=== PATIENT | female | born 2000 | race Two or more races ===

== ENCOUNTER 2021-10-04 21:45 | Inpatient (IN) | payer OTHER ==
[~2021-10-04] VITALS: Ht 152.4 cm; Wt 80.7 kg
[2021-10-04] MEDS ORDERED: PRENTAB9 PO (21:57)
[2021-10-04] MEDS ORDERED: HOME MED LIST COMPLETE! XX SCH (22:00)
[2021-10-04 22:10] VITALS: BP 121/61
[2021-10-04] MEDS ORDERED: PENICILLIN G POTASSIUM IV 5 MU in D5W MINI-BAG PLUS 100 ML IV STA (23:18)
[2021-10-04] MEDS ORDERED: LACTATED RINGER'S 1000 ML IV ONE (23:20)
[2021-10-04] MEDS ORDERED: OXYTOCIN DRIP 30 UNITS in IV 1 EA IV PRN ×4 (23:20)
[2021-10-04] MEDS ORDERED: TRANEXAMIC ACID INJection 1,000 MG in NS 100 ML IV PRN (23:20)
[2021-10-04] MEDS ORDERED: METHYLERGONOVINE MALEATE 0.2 MG/ML VIAL (J2210) IM PRN (23:20)
[2021-10-04] MEDS ORDERED: LR 1,000 ML IV SCH (23:20)
[2021-10-04] MEDS ORDERED: OXYTOCIN INJ 10 UNITS/ML VIAL (J2590) IV PRN (23:20)
[2021-10-04] MEDS ORDERED: BETAMETHASONE SOLUSPAN 6MG/ML 5ML VIAL (J0702 PER 3MG) IM SCH (23:30)
[2021-10-04] MEDS ORDERED: MAGNESIUM *L&D* 4GM/100ML BAG (40MG/ML) IV ONE (23:30)
[2021-10-04] MEDS ORDERED: MAG Sulf (OBGYN) 20GM/500ML 20,000 MG in IV 1 EA IV SCH (23:30)
[2021-10-05] VITALS (19 sets, daily range): BP systolic 90–129; BP diastolic 51–70
[2021-10-05 00:38] LABS: HEMATOCRIT 36.1 % (36.0-47.0); HEMOGLOBIN 12.3 g/dl (12.0-15.5); MEAN CORPUSCULAR HEMOGLOBIN 30.2 pg (27.0-33.0); MEAN CORPUSCULAR HGB CONC 34.1 g/dl (32.0-36.5); MEAN CORPUSCULAR VOLUME 88.7 fl (80.0-96.0); PLATELET COUNT, AUTOMATED 283 10^3/uL (150-450); RED BLOOD COUNT 4.07 10^6/uL (4.00-5.40)
[2021-10-05] MEDS ORDERED: TERBUTALINE SULFATE 1 MG/ML VIAL (J3105) SC STA ×2 (04:14→05:15)
[2021-10-05] MEDS ORDERED: PENICILLIN G POTASSIUM IV 2.5 MU in IV 1 EA IV SCH (05:00)
[2021-10-05] MEDS ORDERED: LIDOCAINE 1% MDV 20ML VIAL INFIL PRN (06:55)
[2021-10-05] MEDS ORDERED: OXYTOCIN DRIP 30 UNITS in IV 1 EA IV PRN ×4 (06:55)
[2021-10-05] MEDS ORDERED: OXYTOCIN INJ 10 UNITS/ML VIAL (J2590) IV PRN (06:55)
[2021-10-05] MEDS ORDERED: ceFAZolin 2 GM/D5W 50 ML IV BAG (J0690 PER 500MG) As Ordered ONE (06:59)
[2021-10-05] MEDS ORDERED: BICITRA 30ML SOLN UDC As Ordered ONE (07:00)
[2021-10-05] MEDS ORDERED: OXYTOCIN INJ 10 UNITS/ML VIAL (J2590) As Ordered ONE (07:16)
[2021-10-05] MEDS ORDERED: ONDANSETRON 4MG 2ML VIAL As Ordered ONE ×2 (07:20→08:10)
[2021-10-05] MEDS ORDERED: BUPIVACAINE HCL 0.25% 10ML VIAL As Ordered ONE (07:20)
[2021-10-05] MEDS ORDERED: METOCLOPRAMIDE INJ 10MG/2ML VIAL (J2765 PER 1) As Ordered ONE (07:21)
[2021-10-05 07:41] LABS: CORD GAS ABE A -3.6; CORD GAS HCO3 A 22.5 MEQ/L; CORD GAS O2 SAT A 73.1 %; CORD GAS PCO2 A 44.5 mmHg; CORD GAS PH A 7.322 UNITS; CORD GAS PO2 A 28.9 mmHg; CORD GAS SBC A 20.9 MEQ/L; CORD GAS TCO2 A 23.9 MEQ/L
[2021-10-05 07:43] LABS: CORD GAS ABE V -3.9; CORD GAS HCO3 V 21.5 MEQ/L; CORD GAS O2 SAT V 61.3 %; CORD GAS PCO2 V 40.4 mmHg; CORD GAS PH V 7.343 UNITS; CORD GAS PO2 V 23.5 mmHg; CORD GAS SBC V 20.3 MEQ/L; CORD GAS TCO2 V 22.7 MEQ/L
[2021-10-05] MEDS ORDERED: ROCURONIUM BROMIDE 50 MG/5 ML VIAL As Ordered ONE (07:43)
[2021-10-05] MEDS ORDERED: LIDOCAINE 2% 100MG/5ML SDV (FOR ANES.) As Ordered ONE (07:43)
[2021-10-05] MEDS ORDERED: propofoL 200 MG/20 ML VIAL As Ordered ONE (07:43)
[2021-10-05] MEDS ORDERED: AZITHROMYCIN INJ 500 MG, VIAL MATE ADAPTER 1 EACH in NS 250 ML IV ONE (08:00)
[2021-10-05] MEDS ORDERED: ACETAMINOPHEN 650 MG SUPP PR ONE (08:00)
[2021-10-05] MEDS ORDERED: KETOROLAC 60MG 2ML VIAL As Ordered ONE (08:00)
[2021-10-05] MEDS ORDERED: BICITRA 30ML SOLN UDC PO ONE (08:00)
[2021-10-05] MEDS ORDERED: ceFAZolin SOD 2 GM in IV 1 EA IV ONE (08:00)
[2021-10-05] MEDS ORDERED: dexameTHASONE 4 MG/ML 1ML VIAL (J1100 PER 1MG) As Ordered ONE (08:04)
[2021-10-05] MEDS ORDERED: OXYTOCIN 30 UNITS IN 0.9% NaCl 500ML IV BAG (J2590) As Ordered ONE (08:16)
[2021-10-05] MEDS ORDERED: LR 1,000 ML IV SCH ×2 (08:20→08:55)
[2021-10-05] MEDS ORDERED: fentaNYL 100 MCG/2 ML INJECTION IV PRN ×2 (08:20→08:55)
[2021-10-05] MEDS ORDERED: ONDANSETRON 4MG 2ML VIAL IV PRN ×2 (08:20→08:55)
[2021-10-05] MEDS ORDERED: NALOXONE INJ 0.4MG/1ML VIAL (J2310 PER 1MG) IV PRN ×4 (08:20→08:55)
[2021-10-05] MEDS ORDERED: **NOTE PATIENT COMMENT** MISC XX SCH ×2 (08:20→08:50)
[2021-10-05] MEDS ORDERED: METOCLOPRAMIDE INJ 10MG/2ML VIAL (J2765 PER 1) IV PRN ×2 (08:20→08:50)
[2021-10-05] MEDS ORDERED: PERCOCET 5MG/325MG TAB PO PRN ×2 (08:20→08:25)
[2021-10-05] MEDS ORDERED: diphenhydrAMINE 50MG/ML VIAL (J1200) IV PRN ×2 (08:20→08:50)
[2021-10-05] MEDS ORDERED: OXYTOCIN DRIP 30 UNITS in IV 1 EA IV SCH ×4 (08:25)
[2021-10-05] MEDS ORDERED: SIMETHICONE 80MG CHEW TAB PO PRN (08:25)
[2021-10-05] MEDS ORDERED: RHOGAM 300 MCG (1500 IU) INJ (J2790) IM SCH (08:25)
[2021-10-05] MEDS ORDERED: ACETAMINOPHEN TAB 650MG DOSE (2X325MG) PO PRN (08:25)
[2021-10-05] MEDS ORDERED: DOCUSATE SODIUM 100MG CAPSULE PO PRN (08:25)
[2021-10-05] MEDS ORDERED: ACETAMINOPHEN 500 MG TAB PO PRN (08:25)
[2021-10-05] MEDS ORDERED: MOM 30ML SUSPENSION UDC PO PRN (08:25)
[2021-10-05] MEDS ORDERED: ANUSOL HC CREAM 30GM TOP PRN (08:25)
[2021-10-05] MEDS: PRENATAL VITAMINS CHEWABLE TABLET PO SCH (09:00)
[2021-10-05] MEDS ORDERED: PERCOCET 5MG/325MG TAB As Ordered ONE (09:02)
[2021-10-05] MEDS: LR 1,000 ML IV SCH ×2 (12:58→16:25)
[2021-10-05] MEDS: KETOROLAC 30 MG/ML 1ML VIAL IV SCH ×2 (14:30→19:51)
[2021-10-05] MEDS: SLF 3 ML SYR IV SCH (14:32)
[2021-10-06] MEDS: LR 1,000 ML IV SCH ×2 (00:25→08:25)
[2021-10-06 02:18] VITALS: BP 101/60
[2021-10-06] MEDS: KETOROLAC 30 MG/ML 1ML VIAL IV SCH (02:25)
[2021-10-06 06:34] VITALS: BP 101/56
[2021-10-06 08:09] LABS: HEMATOCRIT 31.4 % (36.0-47.0); HEMOGLOBIN 10.6 g/dl (12.0-15.5); MEAN CORPUSCULAR HEMOGLOBIN 29.7 pg (27.0-33.0); MEAN CORPUSCULAR HGB CONC 33.8 g/dl (32.0-36.5); PLATELET COUNT, AUTOMATED 258 10^3/uL (150-450); RED BLOOD COUNT 3.57 10^6/uL (4.00-5.40); WHITE BLOOD COUNT 13.7 10^3/uL (4.0-10.0)
[2021-10-06] MEDS: PRENATAL VITAMINS CHEWABLE TABLET PO SCH (09:38)
[2021-10-06] MEDS: PERCOCET 5MG/325MG TAB PO PRN ×3 (09:38→23:01)
[2021-10-06] MEDS ORDERED: IBUPROFEN 600MG TAB PO PRN (10:00)
[2021-10-06 10:05] VITALS: BP 106/60
[2021-10-06] MEDS: SLF 3 ML SYR IV SCH (13:30)
[2021-10-06 14:45] VITALS: BP 106/60
[2021-10-06 18:00] VITALS: BP 112/64
[2021-10-06 22:00] VITALS: BP 108/73
[2021-10-07 02:00] VITALS: BP 106/63
[2021-10-07 06:00] VITALS: BP 109/68
[2021-10-07] MEDS ORDERED: ACET1TAB55 PO (06:43)
[2021-10-07] MEDS ORDERED: IBUP-1022 PO (06:43)
[2021-10-07] MEDS ORDERED: COLA100C5 PO (06:43)
[2021-10-07] MEDS ORDERED: PERCOCET PO (06:43)
[2021-10-07] MEDS: PRENATAL VITAMINS CHEWABLE TABLET PO SCH (07:32)
[2021-10-07] MEDS ORDERED: MEASLES,MUMPS,RUBELLA VACCINE INJ (MMR-II) (90707) SC.IMMUN ONE (09:00)
== END 2021-10-07 12:07 | disposition home or self-care (01) | DRG 771 ==
LOC: M LDO 21:45 → M LDI 23:00 → M OBS 10-05 09:48
PROVIDERS: ADMIT Obstetrics & Gynecology; ATTEND Obstetrics & Gynecology
PROC: 10D00Z1 Extraction of Products of Conception, Low, Open Approach (ICD-10-PCS; principal; 2021-10-05 07:00)
DX: O32.1XX0 Maternal care for breech presentation, not applicable or unspecified (principal); O60.14X0 Preterm labor third trimester with preterm delivery third trimester, not applicable or unspecified; O41.03X0 Oligohydramnios, third trimester, not applicable or unspecified; Z37.0 Single live birth; Z3A.34 34 weeks gestation of pregnancy; O09.31 Supervision of pregnancy with insufficient antenatal care, first trimester